=== PATIENT | male | born 1975 | race Caucasian/White ===

== ENCOUNTER 2018-03-02 10:52 | Emergency (ER) | payer OTHER, SELFPAY ==
[2018-03-02 10:54] VITALS: BP 126/81; PULSE 84; PULSE 88; RESP 17; RESP 19; TEMP 36.7; O2SAT 97; BMI 30.9
--- NOTE | 2018-03-02 11:37 | US_ITS ---
STUDY: ABDOMINAL ULTRASOUND - RIGHT UPPER QUADRANT REASON FOR VISIT: Male, 43 years old. Severe right-sided abdominal pain TECHNIQUE: Ultrasound evaluation of the right upper quadrant was performed with real-time and static guevara-scale imaging. TECHNICAL QUALITY: Adequate. COMPARISON: None. FINDINGS: Liver: The liver measures 15 cm. There is normal echogenicity of the liver. The bile ducts are within normal limits. There is hepatic color flow. The direction of portal flow is hepatopetal. There is no demonstrated mass lesion. Gallbladder: Normal distended gallbladder. The gallbladder wall measures 3 mm. There is a negative sonographic Boyd's sign. There is no pericholecystic fluid. There are no gallstones. Common Bile Duct (C.B.D.): The common bile duct measures 8 mm. Pancreas: Normal size of the head, of the pancreas. There is normal echogenicity of the pancreas. There is no demonstrated pancreatic mass or cyst. Body and tail the pancreas are obscured. Right Kidney: Normal size of the right kidney. The right kidney measures 10.2 x 4.8 x 4.8 cm. Normal renal cortex. The right cortex measures 1.4 cm. There is no demonstrated renal mass or cyst. There is no right hydronephrosis. US/Gallbladder IMPRESSION: Upper limits wall thickening of the gallbladder. Negative sonographic Boyd's sign. No visualized cholelithiasis. Limited visualization of the pancreas. Electronically Signed: Jennifer Tyler MD at 12:33 EDT Tel , Service support ,
[2018-03-02] MEDS: 0.9% Normal Saline 1,000 ML 1000 ML IV (11:51)
[2018-03-02] MEDS: 0.9% Normal Saline 1,000 ML 150 ML IV (11:52)
[2018-03-02 11:56] LABS: Absolute Lymphocyte Count 1.29 X10^3/ul (0.83-4.51); Absolute Neutrophil Count 6.6 X10^3/uL (2.0-7.7); Basophil# 0.02 X10^3/uL; Basophil% 0.2 % (0-1); Eosinophil# 0.03 X10^3/uL; Eosinophils% 0.4 % (0-5); Hematocrit 43.5 % (40-54); Hemoglobin 15.5 g/dl (13.0-16.5); Lymphocyte # 1.29 X10^3/ul (4.0); Lymphocyte % 15.1 % (19-41); Mean Corp Hgb Conc 35.6 g/gl (32-36); Mean Corpuscular Hgb 31.5 pg (27.0-32.0); Mean Corpuscular Volume 88.4 fL (80-94); Mean Platelet Vol. 9.5 fl (6.2-12.0); Monocyte# 0.59 X10^3/uL; Monocyte% 6.9 % (0-10); Neutrophil # 6.62 X10^3/uL (2.7-7.7); Neutrophil % 77.3 % (47-70); Platelet Count 196 K/mm3 (150-450); RBC Distribution Width CV 12.9 % (11.6-14.6); RBC Distribution Width SD 41.8 fl (35.1-43.9); Red Blood Count 4.92 M/mm3 (4.6-6.2); White Blood Count 8.6 K/mm3 (4.4-11.0)
[2018-03-02 11:58] LABS: POSITIVE COUNT NO; POSITIVE DIFFERENTIAL NO; POSITIVE MORPHOLOGY NO
[2018-03-02 12:13] LABS: AST(SGOT) 18 U/L (15-37); Alanine Aminotransfer ALT/SGPT 30 U/L (16-61); Albumin, Serum 4.1 g/dL (3.2-5.0); Alkaline Phosphatase 68 U/L (45-117); Anion Gap 5 (5-15); BUN 10 mg/dL (7-18); BUN/Creat Ratio 11.2 RATIO (10-20); Bilirubin, Direct 0.23 mg/dL (0.00-0.30); Calcium,Total 9.1 mg/dL (8.5-10.1); Chloride 104 mmol/L (98-107); Creatinine, Serum 0.89 mg/dL (0.70-1.30); EST Glomerular Filtration Rate 100 mL/min (>60); Est Glom Filt Rate - Afr Amer 121 mL/min (>60); Estimated Creatinine Clearance 102.12 ml/min; Globulin 3.8 g/dL (2.2-4.2); Glucose 92 mg/dL (74-106); Lipase 89 U/L (73-393); Potassium 4.3 mmol/L (3.5-5.1); Protein, Total 7.9 g/dL (6.4-8.2); Sodium Level 136 mmol/L (136-145)
--- NOTE | 2018-03-02 12:16 | CT_ITS ---
STUDY: CT ABDOMEN AND PELVIS WITH CONTRAST REASON FOR EXAM: Male, 43 years old. Right sided abdominal pain RADIATION DOSAGE (If Supplied By Facility): CTDIvol = ( 16.67 ) mGy, DLP = ( 1333.70 ) mGycm TECHNIQUE: Transaxial images were obtained from the dome of the diaphragm to the symphysis pubis with oral contrast. 100 ml of Isovue 300 contrast was administered. Sagittal and coronal images were reconstructed. Individualized dose optimization techniques were used for this CT. COMPARISON: None. FINDINGS: The visualized lung bases are unremarkable. The visualized portions of the heart are within normal limits. Normal liver. Normal gallbladder and extrahepatic biliary system. There is mild splenomegaly. Normal pancreas. Normal bilateral adrenal glands. Normal right kidney. There is a well-circumscribed left renal cyst measuring 1.0 cm. Normal visualized stomach. There is a distended appearance of the distal small bowel with minimal wall thickening. Imaging over 88 axial views. There is moderate gas and stool in the colon from the cecum to the rectum. The appendix is visualized and appears normal. Clearly demonstrated image #87 and axial views. Normal abdominal aorta. Normal inferior vena cava. Normal retroperitoneum. Normal urinary bladder. The prostate measures 5.3 x 4.2 cm per There is a right-sided fatty inguinal hernia. There are diffuse degenerative changes of the visualized lumbar spine. There is degenerative change most significant L5-S1 with disc space narrowing spondylosis broad disc osteophyte complex moderate neural foramina narrowing. There is degenerative change of the SI joints. CT/Abdomen/Pelvis WITH Contrast IMPRESSION: Mild distention of the distal small bowel wall thickening consider mild focal enteritis. This is in the setting of moderate constipation. Recommend short-term interval follow-up study. No evidence of appendicitis. Mild enlargement of the prostate recommend correlation with laboratory values. No visualized renal ureteral bladder calculi allowing for presence of contrast. Benign-appearing left renal cyst. Mild splenomegaly. Electronically Signed: Jennifer Tyler MD at 14:55 EDT Tel , Service support ,
[2018-03-02] MEDS: HYDROmorphone 0.5 MG/0.5 ML SYRINGE IV (12:32)
[2018-03-02 12:52] VITALS: BP 130/81; PULSE 71; RESP 16; O2SAT 96
[2018-03-02 14:16] VITALS: BP 135/78; PULSE 82; RESP 18; O2SAT 96
[2018-03-02 14:55] VITALS: BP 135/78; PULSE 81; RESP 16; O2SAT 96
--- NOTE | 2018-03-02 15:26 | ED.VISSUMM ---
- ER Visit Summary Date of Service: 03/02/18 Chief Complaint: Abdominal pain History of Present Illness: The patient is a 43 M with mid abdominal pain since this morning. He states he did not eat anything today but had increasing pain throughout the day. He denies nausea, vomiting, or diarrhea. He does state that he had a couple beers last night. He split a meal with his at dinner last evening and she has not had any symptoms. He has not had fever. He denies any prior abdominal surgeries. Physical Examination: Vital signs are unremarkable. Patient is afebrile. Head neck examination unremarkable. Heart is regular rate and rhythm. Lung sounds are clear. Abdomen is soft with periumbilical, right upper quadrant, and epigastric tenderness. There is no guarding or rebound. Hypoactive bowel sounds are noted throughout. There is no guarding or rebound. Test Results: CBC, BMP, LFTs, lipase are all normal. Right upper quadrant ultrasound reveals upper limits wall thickening of the gallbladder. Negative Boyd sign. CT abdomen pelvis with contrast is then obtained. This shows focal area distention of the distal small bowel with wall thickening, consider mild focal enteritis. There is moderate constipation. There is no evidence of appendicitis. Emergency Department Course and Treatment: Patient initially declined pain medication, however after returning from ultrasound did request something. He was given a dose of Dilaudid and Zofran. Test results were discussed with patient and family at bedside. He will be covered with a course of Augmentin. Will also be given Zofran for nausea at home. He declines need for pain medication at home. Treatment Plan: [] Disposition: Discharge Impression: Enteritis This note was generated with [employer] dictation software. It may contain incorrect words, spelling, and punctuation that were not noted in review of the chart prior to signing ED Disposition - Plan for ED Patient: Chief Complaint: Abd Pain Referrals: [facility] Doctor,Out of [Primary Care Provider] -
--- NOTE | 2018-03-02 15:29 | ED.DCSUM_ITS ---
- ER Visit Summary Date of Service: 03/02/18 Chief Complaint: Abdominal pain History of Present Illness: The patient is a 43 M with mid abdominal pain since this morning. He states he did not eat anything today but had increasing pain throughout the day. He denies nausea, vomiting, or diarrhea. He does state that he had a couple beers last night. He split a meal with his at dinner last evening and she has not had any symptoms. He has not had fever. He denies any prior abdominal surgeries. Physical Examination: Vital signs are unremarkable. Patient is afebrile. Head neck examination unremarkable. Heart is regular rate and rhythm. Lung sounds are clear. Abdomen is soft with periumbilical, right upper quadrant, and epigastric tenderness. There is no guarding or rebound. Hypoactive bowel sounds are noted throughout. There is no guarding or rebound. Test Results: CBC, BMP, LFTs, lipase are all normal. Right upper quadrant ultrasound reveals upper limits wall thickening of the gallbladder. Negative Boyd sign. CT abdomen pelvis with contrast is then obtained. This shows focal area distention of the distal small bowel with wall thickening, consider mild focal enteritis. There is moderate constipation. There is no evidence of appendicitis. Emergency Department Course and Treatment: Patient initially declined pain medication, however after returning from ultrasound did request something. He was given a dose of Dilaudid and Zofran. Test results were discussed with patient and family at bedside. He will be covered with a course of Augmentin. Will also be given Zofran for nausea at home. He declines need for pain medication at home. Treatment Plan: [] Disposition: Discharge Impression: Enteritis This note was generated with [employer] dictation software. It may contain incorrect words, spelling, and punctuation that were not noted in review of the chart prior to signing ED Disposition - Plan for ED Patient: Chief Complaint: Abd Pain Referrals: [facility] Doctor,Out of [Primary Care Provider] -
--- NOTE | 2018-03-02 15:31 | ED.DEP ---
ED Disposition - Plan for ED Patient: Disposition: Home or Assisted Living Chief Complaint: Abd Pain Instructions: ED Food Poison Or Gastroenteritis Prescriptions: Ondansetron [Zofran Odt] 4 mg PO Q8H PRN PRN #10 tablet PRN Reason: Nausea Amox/Clavulanate Tablet [Augmentin Tablet] 875 mg PO Q12H #20 tablet Referrals: [facility] Doctor,Out of [Primary Care Provider] -
[2018-03-02] MEDS: Amox/Clavulanate 875 MG Tablet PO (15:45)
[2018-03-02 15:46] VITALS: BP 135/77; PULSE 78; RESP 16; O2SAT 98
== END 2018-03-02 15:56 | disposition home or self-care (01) ==
PROVIDERS: Emergency Provider Emergency Medicine
DX: K52.9 Noninfective gastroenteritis and colitis, unspecified (principal)
CPT/HCPCS: 74177; 76705; 80048; 80076; 83690; 85025; 96361; 96374; 96375; 99284; J7030; Q9967